=== PATIENT | female | born 1995 | race American Indian/Alaskan Native ===

== ENCOUNTER 2018-12-27 18:41 | Emergency (ER) | payer OTHER ==
[2018-12-27] MEDS ORDERED: FLEXERIL PO ONE (19:49)
--- NOTE | 2018-12-27 19:49 | Emergency Department Report ---
Chief Complaint: Back Pain/Injury Stated Complaint: LEFT UPPER BACK PAIN/PULLED MUSCLE Time Seen by Provider: 12/27/18 19:45 - HPI History of Present Illness: Pt presents with left upper back pain that began today states she felt like she bent down the wrong way states it hurts with certain movements no fall, no injury, no trauma states she took ibuprofen with some relief denies ETOH, drug use, smoking LNMP currently on cycle pt has had previously in the past no PMHx no meds on a daily basis no midline tenderness - Exam Vital Signs: Vital Signs 12/27/18 19:16 Temperature 98.4 F Pulse Rate 73 Respiratory 18 Rate Blood Pressure 145/67 [Right] O2 Sat by Pulse 99 Oximetry MSE screening note: Focused history and physical exam performed. Due to findings the following was ordered: med ED Disposition for MSE Condition: Stable
[2018-12-28] MEDS ORDERED: DELTASONE PO ONE (00:49)
--- NOTE | 2018-12-28 00:49 | Emergency Department Report ---
ED Back Pain/Injury HPI - General Chief Complaint: Back Pain/Injury Stated Complaint: LEFT UPPER BACK PAIN/PULLED MUSCLE Time Seen by Provider: 12/27/18 19:45 Source: patient Limitations: No Limitations - History of Present Illness Initial Comments: This is a 23-year-old female who was in the shower falling off Pants today and she strained her upper back. The patient did not fall she denies any other trauma. She denies dysuria. She is ambulatory and nontoxic and afebrile to the emergency room. She has been waiting for us to call her in her car for the last 2 hours. Patient denies any major medical problems and is on no home medications. Movement makes her pain worse. She did take Motrin and that did not relieve the pain so her mother brought her to the emergency room. Complaint: back pain -: Sudden Similar Symptoms Previously: No Place: home Radiation: none Consistency: intermittent Improves With: movement Context: while lifting Associated Symptoms: denies other symptoms Treatments Prior to Arrival: NSAIDS - Related Data Previous Rx's Medication Instructions Recorded Last Taken Type Cyclobenzaprine [Flexeril] 10 mg PO TID PRN #10 tablet 12/28/18 Unknown Rx predniSONE [Deltasone] 20 mg PO DAILY #5 tablet 12/28/18 Unknown Rx Allergies Allergy/AdvReac Type Severity Reaction Status Date / Time No Known Allergies Allergy Unverified 12/27/18 18:43 ED Review of Systems ROS: Stated complaint: LEFT UPPER BACK PAIN/PULLED MUSCLE Other details as noted in HPI Comment: All other systems reviewed and negative ED Past Medical Hx - Past Medical History Medical history: no medical history ED Back Pain Physical Exam - Exam General: Vital signs noted. No distress. Alert and acting appropriately. Back/Abdomen: No Abdominal Tenderness, No Perithoracic Tenderness, No Perilumbar Tenderness, No Sacroiliac Tenderness, No Flank Tenderness, No Straight Leg Raise Pain Neuro: Yes Normal Sensation, Yes Normal DTR's, Yes Normal Gait, No Motor Weakness ED Course Vital Signs 12/27/18 12/27/18 19:16 19:55 Temperature 98.4 F 98.4 F Pulse Rate 73 73 Respiratory 18 15 Rate Blood Pressure 145/67 Blood Pressure 145/67 [Right] O2 Sat by Pulse 99 99 Oximetry ED Medical Decision Making - Medical Decision Making MUSCLE SPASM THORACIC PARASPINAL MUSCLE AFTER STRAINING TODAY NO TRAUMA AMBULATORY NON TOXIC AFEBRILE NO POINT TENDERNESS MEDICATED IN ER DC HOME WITH DC PLAN REQUESTING WORK NOTE BECAUSE SHE CALLED OFF ILL Vital Signs 12/27/18 12/27/18 19:16 19:55 Temperature 98.4 F 98.4 F Pulse Rate 73 73 Respiratory 18 15 Rate Blood Pressure 145/67 Blood Pressure 145/67 [Right] O2 Sat by Pulse 99 99 Oximetry Critical care attestation.: If time is entered above; I have spent that time in minutes in the direct care of this critically ill patient, excluding procedure time. ED Disposition Clinical Impression: Muscle spasm Disposition: DC-01 TO HOME OR SELFCARE Is pt being admited?: No Does the pt Need Aspirin: No Condition: Stable Instructions: Muscle Strain (ED) Additional Instructions: WARM COMPRESSES MEDS ORDERED TODAY FOLLOW UP PCP IF PERSISTS GOOD B[employer]ICS STRETCH BEFORE STRENUOUS ACTIVITY Referrals: HUMBLE MAYO MD [Primary Care Provider] - 3-5 Days Forms: Work/School Release Form Time of Disposition: 00:48
[2018-12-29 18:09] VITALS: BP 132/70
== END 2018-12-28 01:42 | disposition home or self-care (01) ==
LOC: ED 18:41
DX: M62.830 Muscle spasm of back (principal)
CPT/HCPCS: 99282; J7512